=== PATIENT | female | born 1970 | race Caucasian/White ===

== ENCOUNTER 2021-12-23 06:33 | Day surgery (SDC) | payer BC ==
[2021-12-23] MEDS ORDERED: Sodium Chloride 0.9% 1,000 ML IV SCH (07:00)
[2021-12-23] MEDS ORDERED: Midazolam 1 MG/ML 2 ML SDV ONE (07:07)
[2021-12-23] MEDS ORDERED: fentaNYL 100 MCG/2 ML SDV ONE (07:07)
[2021-12-23] MEDS ORDERED: Propofol 200 MG/20 ML SDV ONE ×2 (07:07→07:57)
== END 2021-12-23 09:42 | disposition home or self-care (01) ==
LOC: JP.SDS 06:33
PROVIDERS: ATTEND Family Medicine
DX: Z12.11 Encounter for screening for malignant neoplasm of colon (principal); D12.4 Benign neoplasm of descending colon; D12.8 Benign neoplasm of rectum; Z88.2 Allergy status to sulfonamides
CPT/HCPCS: J2250; J2704; J3010; J7030

== ENCOUNTER 2022-11-02 14:07 | Emergency (ER) | payer BC | END 2022-11-02 15:40 | disposition home or self-care (01) | LOC: JP.ED 14:07 | DX: S93.401A Sprain of unspecified ligament of right ankle, initial encounter (principal); S93.402A Sprain of unspecified ligament of left ankle, initial encounter; Z91.030 Bee allergy status; Z91.018 Allergy to other foods; Z88.2 Allergy status to sulfonamides; X50.1XXA Overexertion from prolonged static or awkward postures, initial encounter | CPT/HCPCS: 73610-50; 736105026; 99283 ==

== ENCOUNTER 2025-07-10 08:15 | Day surgery (SDC) | payer BC ==
[~2025-07-10 08:15] MED LIST: Midazolam 1 MG/ML 2 ML SDV ONE; Propofol 200 MG/20 ML SDV ONE; fentaNYL 50 MCG/ML SDV ONE
[2025-07-10] MEDS: Lactated Ringers 1,000 ML IV SCH (09:08)
== END 2025-07-10 11:30 | disposition home or self-care (01) ==
LOC: JP.SDS 08:15
PROVIDERS: ATTEND Surgery
DX: Z12.11 Encounter for screening for malignant neoplasm of colon (principal); K57.30 Diverticulosis of large intestine without perforation or abscess without bleeding; Z91.030 Bee allergy status; Z91.018 Allergy to other foods; Z88.2 Allergy status to sulfonamides
CPT/HCPCS: 00812; 45378; J2250; J2704; J3010; J7120